=== PATIENT | male | born 1980 | race Caucasian/White ===

== ENCOUNTER → 2020-06-28 | Outpatient (CLI) | payer BC ==
--- NOTE | 2020-06-29 16:02 | MRI ---
EXAM DESCRIPTION: Cervical Spine: MRI. CLINICAL HISTORY: 40 years Male CERVICAL ROOT DISORDERS COMPARISON: None. TECHNIQUE: Multiplanar, high-field MRI, multiple sequences, non-contrast Cervical spine. FINDINGS: C3-C4: Minimal disc desiccation trace posterior bulge but not touching the cord. Mild canal narrowing. Neural foramina are patent. Facets are negative. C5-C6: Minimal disc desiccation. Posterior midline bulge with hyperintense T2 annular fissure, but bulges not touching the cord. Mild canal narrowing. Neural foramina are patent. Facets are negative. T1-T2: Minimal disc space loss and disc desiccation with no bulging. Canal and neural foramina are patent. Facets are negative. Normal signal in the remaining discs with no bulging. Disc spaces preserved. Canal and neural foramina are patent. Facet joints are negative. Spinal alignment C2-C4 kyphosis. No cord compression or cord edema. Atlantoaxial joint is negative. Base of the cerebellar tonsils is at the level of the foramen magnum. Paravertebral soft tissues are unremarkable. Vertebral bodies are not compressed at any level. Normal marrow signal in the vertebral bodies and the posterior elements. IMPRESSION: 1. Minimal desiccation of the C3-C4 disc. Tiny posterior midline bulge with mild canal narrowing. Neural foramina are patent. 2. Minimal disc desiccation C5-C6. Posterior midline bulge with hyperintense T2 annular fissure, bulge not touching the cord. Mild canal narrowing. Neural foramina are patent. 3. Mild C2 to C4 kyphosis. Electronically signed by: Washington Roman MD 06/29/2020 4:00 PM CDT
== END ==
LOC: MRI 10:46
PROVIDERS: ATTEND Family Medicine
DX: M50.31 Other cervical disc degeneration, high cervical region (principal); M50.322 Other cervical disc degeneration at C5-C6 level; M51.34 Other intervertebral disc degeneration, thoracic region; M40.292 Other kyphosis, cervical region